=== PATIENT | female | born 1955 | race African-American/Black ===

== ENCOUNTER 2023-04-29 19:49 | Inpatient (IN) | payer OTHER ==
[2023-04-29] MEDS ORDERED: methylPREDNISolone NA SUCC 125 MG/2 ML VIAL IVPB ONE (20:14)
[2023-04-29] MEDS: ALBUTEROL SO4 2.5/IPRATROPIUM 0.5 INH SOL 3 ML VIAL.NEB. NEB SCH ×4 (20:49→21:55)
[2023-04-29] MEDS ORDERED: oxyCODONE HCL 5 MG TABLET PO ONE (20:54)
[2023-04-29 21:05] LABS: HEMATOCRIT 39.6 % (32.4-45.2); HEMOGLOBIN 12.6 GM/dL (10.7-15.3); MCH 30.2 pg (25.7-33.7); MCHC 31.9 g/dl (32.0-36.0); MEAN CELL VOLUME 94.8 fl (80-96); MEAN PLT VOLUME 8.4 fl (7.5-11.1); PLATELET COUNT 720 10^3/uL (134-434); RBC 4.18 M/mm3 (3.60-5.2); RDW 17.1 % (11.6-15.6); WHITE BLOOD COUNT 14.2 K/mm3 (4.0-10.0)
[2023-04-29 21:41] LABS: POTASSIUM 5.6 mmol/L (3.5-5.1)
[2023-04-29 21:43] LABS: CALCIUM 9.5 mg/dL (8.5-10.1)
[2023-04-29 21:44] LABS: BLOOD UREA NITROGEN 25.6 mg/dL (7-18)
[2023-04-29 21:46] LABS: CREATININE 0.6 mg/dL (0.55-1.3)
[2023-04-29 21:47] LABS: BILIRUBIN,TOTAL 0.2 mg/dL (0.2-1); TOT PROT 6.4 g/dl (6.4-8.2)
[2023-04-29] MEDS ORDERED: ALBUTEROL SO4 2.5/IPRATROPIUM 0.5 INH SOL 3 ML VIAL.NEB. NEB ONE (21:53)
[2023-04-29 23:09] LABS: ANISOCYTOSIS 2+; MACROCYTOSIS 0; OVALOCYTE 2+
[2023-04-29] MEDS ORDERED: ZOLPIDEM TARTRATE 5 MG TABLET PO ONE (23:30)
[2023-04-29] MEDS ORDERED: ZOLPIDEM TARTRATE 5 MG TABLET ONE (23:50)
[2023-04-29] MEDS: APIXABAN 2.5 MG TABLET PO SCH (23:53)
[2023-04-29] MEDS ORDERED: DOCUSATE SODIUM 100 MG CAPSULE (FP) PO PRN (23:53)
[2023-04-30] MEDS ORDERED: methylPREDNISolone NA SUCC 40 MG/1 ML VIAL ONE (00:32)
[2023-04-30] MEDS ORDERED: AZITHROMYCIN IVPB 500 MG/250 ML BAG IVPB ONE ×2 (00:32→01:00)
[2023-04-30] MEDS: methylPREDNISolone NA SUCC 40 MG/1 ML VIAL IVPUSH SCH ×2 (01:43→11:53)
[2023-04-30] MEDS ORDERED: predniSONE 20 MG TABLET (UD) PO ONE ×2 (05:09→07:30)
[2023-04-30] MEDS: oxyCODONE HCL 5 MG TABLET PO PRN ×3 (06:03→22:20)
[2023-04-30 06:48] VITALS: BMI 23.3
[2023-04-30] MEDS: ALBUTEROL SO4 2.5/IPRATROPIUM 0.5 INH SOL 3 ML VIAL.NEB. NEB SCH ×3 (08:00→20:16)
[2023-04-30] MEDS: BUDESONIDE 0.5 MG/2 ML INH SUSP VIAL NEB SCH ×2 (08:00→20:16)
[2023-04-30] MEDS: APIXABAN 2.5 MG TABLET PO SCH ×2 (11:16→21:50)
[2023-04-30] MEDS: PANTOPRAZOLE 20 MG TABLET PO SCH (11:16)
[2023-04-30] MEDS: ASPIRIN 81 MG CHEWABLE TABLETS PO SCH (11:16)
[2023-04-30] MEDS: amLODIPine BESYLATE 5 MG TABLET (FP) PO SCH (11:16)
[2023-04-30] MEDS: metoPROLOL SUCCINATE 25 MG TAB.SR.24H (FP) PO SCH (11:16)
[2023-04-30] MEDS: NICOTINE 21 MG/24 HOURS TOPICAL PATCH TD SCH (11:17)
[2023-04-30 11:46] LABS: HEMATOCRIT 36.2 % (32.4-45.2); MCH 29.2 pg (25.7-33.7); MCHC 30.5 g/dl (32.0-36.0); MEAN CELL VOLUME 95.9 fl (80-96); PLATELET COUNT 633 10^3/uL (134-434); RBC 3.77 M/mm3 (3.60-5.2); RDW 16.7 % (11.6-15.6); WHITE BLOOD COUNT 12.5 K/mm3 (4.0-10.0)
[2023-04-30 12:05] LABS: POTASSIUM 4.6 mmol/L (3.5-5.1)
[2023-04-30 12:12] LABS: BLOOD UREA NITROGEN 20.8 mg/dL (7-18)
[2023-04-30 12:15] LABS: CREATININE 0.7 mg/dL (0.55-1.3)
[2023-04-30 12:21] LABS: ANISOCYTOSIS 1+; MACROCYTOSIS 0; OVALOCYTE 2+
[2023-04-30] MEDS: predniSONE 10 MG TABLET (UD) PO SCH (21:51)
[2023-04-30] MEDS ORDERED: MONTELUKAST NA 10 MG TABLET PO SCH (22:00)
[2023-04-30] MEDS ORDERED: MIRTAZAPINE 15 MG TABLET (FP) PO SCH (22:00)
[2023-04-30] MEDS ORDERED: ZOLPIDEM TARTRATE 5 MG TABLET PO ONE (23:48)
[2023-05-01] MEDS: CEFUROXIME AXETIL 250 MG TABLET PO SCH ×2 (00:27→10:47)
[2023-05-01] MEDS: oxyCODONE HCL 5 MG TABLET PO PRN ×2 (07:13→14:33)
[2023-05-01] MEDS: ALBUTEROL SO4 2.5/IPRATROPIUM 0.5 INH SOL 3 ML VIAL.NEB. NEB SCH ×3 (07:15→15:12)
[2023-05-01] MEDS: BUDESONIDE 0.5 MG/2 ML INH SUSP VIAL NEB SCH (07:15)
[2023-05-01] MEDS ORDERED: AZITHROMYCIN IVPB 500 MG in DEXTROSE 5%-WATER - 250 ML IVPB SCH (10:00)
[2023-05-01] MEDS: NICOTINE 21 MG/24 HOURS TOPICAL PATCH TD SCH (10:47)
[2023-05-01] MEDS: amLODIPine BESYLATE 5 MG TABLET (FP) PO SCH (10:48)
[2023-05-01] MEDS: predniSONE 10 MG TABLET (UD) PO SCH (10:48)
[2023-05-01] MEDS: PANTOPRAZOLE 20 MG TABLET PO SCH (10:48)
[2023-05-01] MEDS: APIXABAN 2.5 MG TABLET PO SCH (10:48)
[2023-05-01] MEDS: metoPROLOL SUCCINATE 25 MG TAB.SR.24H (FP) PO SCH (10:48)
[2023-05-01] MEDS: ASPIRIN 81 MG CHEWABLE TABLETS PO SCH (10:48)
[2023-05-01 15:10] VITALS: BP 123/72; PULSE 102; RESP 17; TEMP 98.4
== END 2023-05-01 18:35 | DRG 191 ==
LOC: JER 19:49 → JERBED 23:34 → J5S 04-30 01:57 → OBSVTOIN 04-30 10:19
PROVIDERS: ADMIT Internal Medicine; ATTEND Family Medicine
DX: J44.1 Chronic obstructive pulmonary disease with (acute) exacerbation (principal); J45.901 Unspecified asthma with (acute) exacerbation; I10 Essential (primary) hypertension; E78.5 Hyperlipidemia, unspecified; F17.210 Nicotine dependence, cigarettes, uncomplicated; Z99.81 Dependence on supplemental oxygen
CPT/HCPCS: 0241U-QW; 36415; 71045-TC-FY; 80048; 80053; 85025; 87040; 87070; 87086; 87205; 94640; 99285-25; G0378

== ENCOUNTER 2023-05-16 04:34 | Inpatient (IN) | payer OTHER ==
[2023-05-16 04:45] VITALS: BMI 26.5
[2023-05-16] MEDS ORDERED: MAGNESIUM SULF 50% (8.12 MEQ/2 ML-1 GM VIAL) IVPB ONE (04:49)
[2023-05-16] MEDS ORDERED: methylPREDNISolone NA SUCC 125 MG/2 ML VIAL IVPB ONE (04:49)
[2023-05-16] MEDS ORDERED: ALBUTEROL SO4 2.5/IPRATROPIUM 0.5 INH SOL 3 ML VIAL.NEB. NEB ONE ×3 (04:55→09:27)
[2023-05-16] MEDS ORDERED: ALBUTEROL SO4 2.5/IPRATROPIUM 0.5 INH SOL 3 ML VIAL.NEB. NEB SCH (05:00)
[2023-05-16] MEDS: ALBUTEROL SO4 2.5/IPRATROPIUM 0.5 INH SOL 3 ML VIAL.NEB. NEB SCH ×8 (05:00→20:10)
[2023-05-16] MEDS ORDERED: methylPREDNISolone NA SUCC 125 MG/2 ML VIAL ONE (05:29)
[2023-05-16] MEDS ORDERED: MAGNESIUM SULFATE IN WATER 2 GM/50 ML IVPB IVPB ONE (05:29)
[2023-05-16 05:41] LABS: HEMATOCRIT 34.5 % (32.4-45.2); HEMOGLOBIN 10.8 GM/dL (10.7-15.3); MCH 29.5 pg (25.7-33.7); MCHC 31.3 g/dl (32.0-36.0); MEAN CELL VOLUME 94.3 fl (80-96); MEAN PLT VOLUME 6.5 fl (7.5-11.1); PLATELET COUNT 157 10^3/uL (134-434); RBC 3.66 M/mm3 (3.60-5.2); RDW 17.1 % (11.6-15.6); WHITE BLOOD COUNT 7.7 K/mm3 (4.0-10.0)
[2023-05-16 05:52] LABS: POTASSIUM 4.4 mmol/L (3.5-5.1)
[2023-05-16 05:54] LABS: ALBUMIN 2.8 g/dl (3.4-5.0); CALCIUM 8.3 mg/dL (8.5-10.1); MAGNESIUM 2.1 mg/dL (1.8-2.4)
[2023-05-16 05:55] LABS: BLOOD UREA NITROGEN 22.4 mg/dL (7-18)
[2023-05-16 05:58] LABS: CREATININE 0.7 mg/dL (0.55-1.3)
[2023-05-16 05:59] LABS: BILIRUBIN,TOTAL 0.3 mg/dL (0.2-1); TOT PROT 5.2 g/dl (6.4-8.2)
[2023-05-16] MEDS ORDERED: oxyCODONE HCL 5 MG TABLET PO ONE (06:05)
[2023-05-16] MEDS ORDERED: oxyCODONE HCL 5 MG TABLET ONE (06:17)
[2023-05-16] MEDS ORDERED: ALBUTEROL SO4 0.083% IH SOL 2.5 MG/3 ML VIAL.NEB. NEB ONE ×2 (06:57→07:17)
[2023-05-16] MEDS ORDERED: AZITHROMYCIN IVPB 500 MG in DEXTROSE 5%-WATER - 250 ML IVPB ONE (08:32)
[2023-05-16 08:45] LABS: ANISOCYTOSIS 1+; MACROCYTOSIS 0; OVALOCYTE 2+
[2023-05-16] MEDS ORDERED: AZITHROMYCIN IVPB 500 MG/250 ML BAG IVPB ONE (09:01)
[2023-05-16] MEDS ORDERED: PIPERACILLIN/TAZOB 3.375 GM 3.375 GM in DEXTROSE 5%-WATER - 50 ML IVPB SCH ×2 (10:45→11:15)
[2023-05-16] MEDS ORDERED: guaiFENesin/D-METHORPHAN HB 5 ML UNIT-DOSE CUPS PO SCH (14:00)
[2023-05-16] MEDS ORDERED: PNEUMOC 20-VAL CONJ-DIP CRM/PF 0.5 ML SYRINGE IM ONE (14:30)
[2023-05-16] MEDS: methylPREDNISolone NA SUCC 40 MG/1 ML VIAL IVPUSH SCH ×2 (14:45→21:13)
[2023-05-16] MEDS: guaiFENesin/D-M SUGAR-FREE/ACLHOL-FREE (200 MG/10 MG) 5 ML PO SCH ×2 (14:53→21:23)
[2023-05-16] MEDS ORDERED: traMADol HCL 50 MG TABLET PO PRN (16:42)
[2023-05-16] MEDS: ZOLPIDEM TARTRATE 5 MG TABLET PO SCH (21:13)
[2023-05-16] MEDS: APIXABAN 2.5 MG TABLET PO SCH (21:13)
[2023-05-17] MEDS ORDERED: oxyCODONE HCL 5 MG TABLET PO PRN (00:10)
[2023-05-17] MEDS: methylPREDNISolone NA SUCC 40 MG/1 ML VIAL IVPUSH SCH ×3 (04:35→18:55)
[2023-05-17] MEDS: guaiFENesin/D-M SUGAR-FREE/ACLHOL-FREE (200 MG/10 MG) 5 ML PO SCH ×3 (05:35→22:10)
[2023-05-17] MEDS: ALBUTEROL SO4 2.5/IPRATROPIUM 0.5 INH SOL 3 ML VIAL.NEB. NEB SCH ×4 (07:53→20:10)
[2023-05-17] MEDS: CEFTRIAXONE 1 GM in DEXTROSE 5%-WATER - 50 ML IVPB SCH (09:20)
[2023-05-17] MEDS: NICOTINE 21 MG/24 HOURS TOPICAL PATCH TD SCH (09:20)
[2023-05-17] MEDS: PANTOPRAZOLE 20 MG TABLET PO SCH (09:21)
[2023-05-17] MEDS: MIRTAZAPINE 15 MG TABLET (FP) PO SCH (09:21)
[2023-05-17] MEDS: ASPIRIN 81 MG CHEWABLE TABLETS PO SCH (09:21)
[2023-05-17] MEDS: amLODIPine BESYLATE 5 MG TABLET (FP) PO SCH (09:21)
[2023-05-17] MEDS: metoPROLOL SUCCINATE 25 MG TAB.SR.24H (FP) PO SCH (09:21)
[2023-05-17] MEDS: APIXABAN 2.5 MG TABLET PO SCH ×2 (09:21→22:10)
[2023-05-17] MEDS: BUDESONIDE 0.5 MG/2 ML INH SUSP VIAL NEB SCH ×2 (10:00→21:00)
[2023-05-17] MEDS: oxyCODONE HCL 5 MG TABLET PO PRN ×2 (11:30→22:10)
[2023-05-17 13:38] LABS: HEMOGLOBIN 11.1 GM/dL (10.7-15.3); MCH 29.8 pg (25.7-33.7); MCHC 31.8 g/dl (32.0-36.0); MEAN CELL VOLUME 93.8 fl (80-96); MEAN PLT VOLUME 7.2 fl (7.5-11.1); PLATELET COUNT 202 10^3/uL (134-434); RBC 3.73 M/mm3 (3.60-5.2); RDW 17.2 % (11.6-15.6); WHITE BLOOD COUNT 15.5 K/mm3 (4.0-10.0)
[2023-05-17 13:56] LABS: POTASSIUM 4.4 mmol/L (3.5-5.1)
[2023-05-17 14:00] LABS: CALCIUM 9.1 mg/dL (8.5-10.1)
[2023-05-17 14:01] LABS: ALBUMIN 3.3 g/dl (3.4-5.0); BLOOD UREA NITROGEN 21.1 mg/dL (7-18)
[2023-05-17 14:05] LABS: TOT PROT 6.1 g/dl (6.4-8.2)
[2023-05-17 14:07] LABS: BILIRUBIN,TOTAL 0.4 mg/dL (0.2-1)
[2023-05-17 14:21] LABS: CREATININE 0.6 mg/dL (0.55-1.3)
[2023-05-17 14:38] LABS: ANISOCYTOSIS 2+; MACROCYTOSIS 0; OVALOCYTE 1+
[2023-05-17] MEDS: ZOLPIDEM TARTRATE 5 MG TABLET PO SCH (22:10)
[2023-05-17] MEDS: MONTELUKAST NA 10 MG TABLET PO SCH (22:10)
[2023-05-17 22:26] VITALS: RESP 18
[2023-05-18] MEDS: methylPREDNISolone NA SUCC 40 MG/1 ML VIAL IVPUSH SCH ×3 (01:19→17:07)
[2023-05-18] MEDS ORDERED: ALBUTEROL SO4 2.5/IPRATROPIUM 0.5 INH SOL 3 ML VIAL.NEB. NEB ONE (05:10)
[2023-05-18] MEDS: guaiFENesin/D-M SUGAR-FREE/ACLHOL-FREE (200 MG/10 MG) 5 ML PO SCH ×3 (06:39→21:14)
[2023-05-18 08:43] LABS: HEMATOCRIT 31.8 % (32.4-45.2); HEMOGLOBIN 10.3 GM/dL (10.7-15.3); MCH 29.8 pg (25.7-33.7); MCHC 32.2 g/dl (32.0-36.0); MEAN CELL VOLUME 92.5 fl (80-96); MEAN PLT VOLUME 7.3 fl (7.5-11.1); PLATELET COUNT 178 10^3/uL (134-434); RBC 3.44 M/mm3 (3.60-5.2); RDW 16.8 % (11.6-15.6); WHITE BLOOD COUNT 13.1 K/mm3 (4.0-10.0)
[2023-05-18] MEDS: ASPIRIN 81 MG CHEWABLE TABLETS PO SCH (09:04)
[2023-05-18] MEDS: PANTOPRAZOLE 20 MG TABLET PO SCH (09:04)
[2023-05-18] MEDS: APIXABAN 2.5 MG TABLET PO SCH ×2 (09:04→21:13)
[2023-05-18] MEDS: metoPROLOL SUCCINATE 25 MG TAB.SR.24H (FP) PO SCH (09:04)
[2023-05-18] MEDS: amLODIPine BESYLATE 5 MG TABLET (FP) PO SCH (09:04)
[2023-05-18] MEDS: MIRTAZAPINE 15 MG TABLET (FP) PO SCH (09:04)
[2023-05-18] MEDS: NICOTINE 21 MG/24 HOURS TOPICAL PATCH TD SCH (09:04)
[2023-05-18 09:14] LABS: ANISOCYTOSIS 0; HELMET CELLS 0; HOWELL-JOLLY BODIES 0; MACROCYTOSIS 0; OVALOCYTE 0; ROULEAU 0; SICKELED CELLS 0; TARGET CELLS 0; TEAR DROP CELLS 0; TOXIC GRANULATION 0
[2023-05-18 09:18] LABS: POTASSIUM 4.2 mmol/L (3.5-5.1)
[2023-05-18 09:20] LABS: CALCIUM 7.8 mg/dL (8.5-10.1)
[2023-05-18 09:21] LABS: BLOOD UREA NITROGEN 25.7 mg/dL (7-18)
[2023-05-18 09:24] LABS: CREATININE 0.6 mg/dL (0.55-1.3)
[2023-05-18 09:25] LABS: TOT PROT 4.8 g/dl (6.4-8.2)
[2023-05-18 09:26] LABS: ALBUMIN 2.6 g/dl (3.4-5.0); BILIRUBIN,TOTAL 0.2 mg/dL (0.2-1)
[2023-05-18] MEDS: BUDESONIDE 0.5 MG/2 ML INH SUSP VIAL NEB SCH ×2 (10:00→21:16)
[2023-05-18] MEDS: ALBUTEROL SO4 2.5/IPRATROPIUM 0.5 INH SOL 3 ML VIAL.NEB. NEB SCH ×4 (10:06→20:07)
[2023-05-18] MEDS: CEFTRIAXONE 1 GM in DEXTROSE 5%-WATER - 50 ML IVPB SCH (10:09)
[2023-05-18] MEDS: oxyCODONE HCL 5 MG TABLET PO PRN ×2 (10:40→19:00)
[2023-05-18] MEDS: MONTELUKAST NA 10 MG TABLET PO SCH (21:13)
[2023-05-18] MEDS: ZOLPIDEM TARTRATE 5 MG TABLET PO SCH (21:13)
[2023-05-19] MEDS: methylPREDNISolone NA SUCC 40 MG/1 ML VIAL IVPUSH SCH ×4 (01:23→21:53)
[2023-05-19] MEDS: ALBUTEROL SO4 2.5/IPRATROPIUM 0.5 INH SOL 3 ML VIAL.NEB. NEB SCH ×4 (06:00→20:39)
[2023-05-19] MEDS: guaiFENesin/D-M SUGAR-FREE/ACLHOL-FREE (200 MG/10 MG) 5 ML PO SCH ×3 (06:13→21:50)
[2023-05-19] MEDS: BUDESONIDE 0.5 MG/2 ML INH SUSP VIAL NEB SCH ×2 (09:45→21:20)
[2023-05-19] MEDS: APIXABAN 2.5 MG TABLET PO SCH ×2 (10:10→21:51)
[2023-05-19] MEDS: ASPIRIN 81 MG CHEWABLE TABLETS PO SCH (10:10)
[2023-05-19] MEDS: NICOTINE 21 MG/24 HOURS TOPICAL PATCH TD SCH (10:10)
[2023-05-19] MEDS: amLODIPine BESYLATE 5 MG TABLET (FP) PO SCH (10:10)
[2023-05-19] MEDS: PANTOPRAZOLE 20 MG TABLET PO SCH (10:10)
[2023-05-19] MEDS: MIRTAZAPINE 15 MG TABLET (FP) PO SCH (10:10)
[2023-05-19] MEDS: metoPROLOL SUCCINATE 25 MG TAB.SR.24H (FP) PO SCH (10:10)
[2023-05-19] MEDS: CEFTRIAXONE 1 GM in DEXTROSE 5%-WATER - 50 ML IVPB SCH (10:10)
[2023-05-19] MEDS: oxyCODONE HCL 5 MG TABLET PO PRN ×2 (10:11→18:39)
[2023-05-19] MEDS: ZOLPIDEM TARTRATE 5 MG TABLET PO SCH (21:50)
[2023-05-19] MEDS: MONTELUKAST NA 10 MG TABLET PO SCH (21:50)
[2023-05-20] MEDS ORDERED: ALBUTEROL SO4 2.5/IPRATROPIUM 0.5 INH SOL 3 ML VIAL.NEB. NEB ONE (04:58)
[2023-05-20] MEDS: guaiFENesin/D-M SUGAR-FREE/ACLHOL-FREE (200 MG/10 MG) 5 ML PO SCH ×2 (06:53→15:01)
[2023-05-20] MEDS: oxyCODONE HCL 5 MG TABLET PO PRN ×2 (06:54→15:02)
[2023-05-20] MEDS: ALBUTEROL SO4 2.5/IPRATROPIUM 0.5 INH SOL 3 ML VIAL.NEB. NEB SCH ×4 (08:00→16:45)
[2023-05-20] MEDS: BUDESONIDE 0.5 MG/2 ML INH SUSP VIAL NEB SCH (09:20)
[2023-05-20] MEDS: methylPREDNISolone NA SUCC 40 MG/1 ML VIAL IVPUSH SCH (10:20)
[2023-05-20] MEDS: NICOTINE 21 MG/24 HOURS TOPICAL PATCH TD SCH (10:21)
[2023-05-20] MEDS: PANTOPRAZOLE 20 MG TABLET PO SCH (10:21)
[2023-05-20] MEDS: MIRTAZAPINE 15 MG TABLET (FP) PO SCH (10:21)
[2023-05-20] MEDS: amLODIPine BESYLATE 5 MG TABLET (FP) PO SCH (10:21)
[2023-05-20] MEDS: APIXABAN 2.5 MG TABLET PO SCH (10:21)
[2023-05-20] MEDS: CEFTRIAXONE 1 GM in DEXTROSE 5%-WATER - 50 ML IVPB SCH (10:21)
[2023-05-20] MEDS: metoPROLOL SUCCINATE 25 MG TAB.SR.24H (FP) PO SCH (10:21)
[2023-05-20] MEDS: ASPIRIN 81 MG CHEWABLE TABLETS PO SCH (11:25)
[2023-05-20 14:37] VITALS: BP 135/80; PULSE 101; TEMP 98
[2023-05-21] MEDS ORDERED: predniSONE 20 MG TABLET (UD) PO SCH (10:00)
== END 2023-05-20 16:04 | DRG 190 ==
LOC: JER 04:34 → JERBED 08:41 → J7W 10:52
PROVIDERS: ADMIT Family Medicine; ATTEND Family Medicine
DX: J44.0 Chronic obstructive pulmonary disease with (acute) lower respiratory infection (principal); J18.9 Pneumonia, unspecified organism; J45.901 Unspecified asthma with (acute) exacerbation; J44.1 Chronic obstructive pulmonary disease with (acute) exacerbation; Z99.81 Dependence on supplemental oxygen; I10 Essential (primary) hypertension; E78.5 Hyperlipidemia, unspecified; F17.200 Nicotine dependence, unspecified, uncomplicated; G35 Multiple sclerosis
CPT/HCPCS: 0241U-QW; 36415; 71045-TC-FY; 71250-TC; 80053; 82962; 83735; 84443; 84484; 85025; 87070; 87205; 87899; 93005; 93010; 94640; 97116-GP; 97161-GP; 99285-25